=== PATIENT | female | born 1945 | race Caucasian/White ===

== ENCOUNTER 2025-04-19 09:22 | Inpatient (IN) | payer MEDICARE, OTHER ==
[2025-04-19] MEDS ORDERED: dilTIAZem 25 MG/5 ML VIAL ONE (10:18)
[2025-04-19 10:28] LABS: #Basophils 0.04 10x3/uL (0.0-0.2); #Eosinophils 0.12 10x3/uL (0.0-0.5); #Monocytes 0.58 10x3/uL (0.0-1.1); #Neutrophils 4.66 10x3/uL (1.5-8.4); %Basophils 0.6 % (0.0-2.0); %Eosinophils 1.7 % (0.0-6.0); %Lymphocytes 22.6 % (18.0-47.0); %Monocytes 8.3 % (0.0-10.0); %Neutrophils 66.2 % (40.0-75.0); Hematocrit 42.6 % (34.9-44.5); Hemoglobin 14.0 g/dL (12.0-15.5); Mean Corpuscular Hemoglobin 30.6 pg (27.0-33.0); Mean Corpuscular Volume 93.2 fL (81.6-98.3); Platelet Count 187 10x3/uL (150-450); Red Blood Cell (RBC) Count 4.57 10x6/uL (3.90-5.03); White Blood Cell (WBC) Count 7.03 10x3/uL (3.5-10.5)
[2025-04-19 10:38] LABS: Glucose, Urine (Dipstick) Normal (Negative); Leukocyte Negative (Negative); Protein, Urine (Dipstick) 30 mg/dl (Neg-Trace); Specific Gravity, Urine 1.010 (1.005-1.030)
[2025-04-19 10:55] LABS: ALT (SGPT) 9 U/L (Less than 34); AST (SGOT) 20 U/L (11-34); Albumin 4.5 g/dL (3.1-4.5); Alkaline Phosphatase 88 U/L (40-110); Anion Gap 16 mmol/L (10-20); BUN (Urea Nitrogen) 23 mg/dL (9.8-20.1); Bilirubin, Total 0.5 mg/dL (0.3-1.2); Calc. Creatinine Clearance 0 mL/min (70-130); Calcium 9.3 mg/dL (7.8-10.44); Carbon Dioxide 23 mmol/L (23-31); Chloride 103 mmol/L (98-107); Globulin 2.5 g/dL (2.4-3.5); Glucose 101 mg/dL (83-110); Potassium 4.4 mmol/L (3.5-5.1); Sodium 138 mmol/L (136-145)
[2025-04-19 10:57] LABS: Troponin I 0.011 ng/mL (< 0.028)
[2025-04-19 11:10] LABS: Bacteria/HPF Rare-Few HPF (None Seen); CAUTI Indications for Culture Fever or rigors; RBC/HPF 0-3 HPF (0-3); WBC/HPF 0-3 HPF (0-3)
[2025-04-19 11:11] LABS: Urine Culture Reflex No No
[2025-04-19] MEDS ORDERED: Enoxaparin 60 MG (0.6 mL) SYRINGE ONE (11:49)
[2025-04-19] MEDS ORDERED: Amiodarone In Dextrose 200 ML ONE (11:50)
[2025-04-19] MEDS ORDERED: Ondansetron PF 4 MG/2 ML Vial IVP PRN (12:16)
[2025-04-19] MEDS ORDERED: Senokot S 8.6-50 MG TAB PO PRN (12:16)
[2025-04-19] MEDS ORDERED: Acetaminophen 325 MG TAB PO PRN (12:16)
[2025-04-19] MEDS ORDERED: Calcium Carbonate 500 MG ChewTAB PO PRN (12:16)
[2025-04-19] MEDS ORDERED: Electrolyte Replacement Protocol 1 EACH FS SCH (12:30)
[2025-04-19] MEDS: dilTIAZem 30 MG TAB PO SCH (13:34)
[2025-04-19 14:37] VITALS: BMI 28.0
[2025-04-19] MEDS: Digoxin 0.5 MG/2 ML AMP SLOW IVP SCH ×3 (14:46→19:13)
[2025-04-19] MEDS: Metoprolol Tartrate 5 MG (5 mL) VIAL IVP SCH (15:35)
[2025-04-19] MEDS: Atenolol 50 MG TAB PO SCH (17:29)
[2025-04-19] MEDS: Apixaban 5 MG TAB PO SCH (21:34)
[2025-04-20 06:50] LABS: #Basophils 0.04 10x3/uL (0.0-0.2); #Eosinophils 0.19 10x3/uL (0.0-0.5); #Monocytes 0.57 10x3/uL (0.0-1.1); #Neutrophils 4.27 10x3/uL (1.5-8.4); %Basophils 0.5 % (0.0-2.0); %Eosinophils 2.6 % (0.0-6.0); %Lymphocytes 30.0 % (18.0-47.0); %Monocytes 7.8 % (0.0-10.0); %Neutrophils 58.6 % (40.0-75.0); Hematocrit 42.1 % (34.9-44.5); Hemoglobin 13.6 g/dL (12.0-15.5); Mean Corpuscular Hemoglobin 30.8 pg (27.0-33.0); Mean Corpuscular Volume 95.2 fL (81.6-98.3); Platelet Count 182 10x3/uL (150-450); Red Blood Cell (RBC) Count 4.42 10x6/uL (3.90-5.03); White Blood Cell (WBC) Count 7.30 10x3/uL (3.5-10.5)
[2025-04-20 07:22] LABS: ALT (SGPT) 9 U/L (Less than 34); AST (SGOT) 20 U/L (11-34); Albumin 3.9 g/dL (3.1-4.5); Alkaline Phosphatase 77 U/L (40-110); Anion Gap 11 mmol/L (10-20); BUN (Urea Nitrogen) 19 mg/dL (9.8-20.1); Bilirubin, Total 0.4 mg/dL (0.3-1.2); Calc. Creatinine Clearance 49 mL/min (70-130); Calcium 8.7 mg/dL (7.8-10.44); Carbon Dioxide 24 mmol/L (23-31); Chloride 110 mmol/L (98-107); Globulin 2.3 g/dL (2.4-3.5); Glucose 92 mg/dL (83-110); Magnesium 2.0 mg/dL (1.6-2.6); Potassium 4.4 mmol/L (3.5-5.1); Sodium 141 mmol/L (136-145)
[2025-04-20] MEDS: Digoxin 0.25 MG TAB PO SCH (08:33)
[2025-04-20] MEDS: Aspirin 81 mg Enteric Coated Tablet PO SCH (08:33)
[2025-04-20] MEDS: Magnesium 2 GM/50 ML(in water) 2 GM in Premix 1 BAG IVPB SCH (08:47)
[2025-04-20 12:30] VITALS: BP 138/64; TEMP 98
[2025-04-20 13:58] LABS: Thyroid Stimulating Hormone 3.5034 uIU/mL (0.35-4.94)
[2025-04-20 20:05] LABS: T4 7.61 ug/dL (4.87-11.72)
[2025-04-21] MEDS ORDERED: Atenolol 25 MG TAB PO SCH (09:00)
== END 2025-04-20 15:00 | disposition home or self-care (01) | DRG 310 ==
LOC: SUATTDRO 09:22 → CSHERS 09:22 → CSHICU 12:18
PROVIDERS: ADMIT Internal Medicine; ATTEND Internal Medicine
DX: I48.0 Paroxysmal atrial fibrillation (principal); E03.9 Hypothyroidism, unspecified; I10 Essential (primary) hypertension; Z88.2 Allergy status to sulfonamides; Z79.899 Other long term (current) drug therapy; Z90.49 Acquired absence of other specified parts of digestive tract; Z90.79 Acquired absence of other genital organ(s); Z98.890 Other specified postprocedural states; Z79.890 Hormone replacement therapy
CPT/HCPCS: 36415; 80053; 81001; 83735; 84436; 84443; 84484; 85025; 93005; 93010; 93306; 96372; 96374; 96375; J0283; J1160; J1650; J3475; J7030